=== PATIENT | male | born 1955 | race Caucasian/White ===

== ENCOUNTER 2021-07-10 06:45 | Emergency (ER) | payer MEDICAID ==
[~2021-07-10] VITALS: Ht 172.7 cm; Wt 72.7 kg
[2021-07-10 07:37] VITALS: BP 120/71
== END 2021-07-10 07:47 | disposition left against medical advice (07) ==
LOC: EMS 06:49
DX: R33.9 Retention of urine, unspecified (principal); R31.9 Hematuria, unspecified; F17.210 Nicotine dependence, cigarettes, uncomplicated; Z88.8 Allergy status to other drugs, medicaments and biological substances
CPT/HCPCS: 51702; 99284; Z7502

== ENCOUNTER 2021-07-10 11:34 | Emergency (ER) | payer MEDICAID ==
[~2021-07-10] VITALS: Ht 167.6 cm; Wt 63.6 kg
[2021-07-10 12:00] VITALS: BP 134/80
== END 2021-07-10 12:50 | disposition left against medical advice (07) ==
LOC: EMS 11:34
DX: T83.018A Breakdown (mechanical) of other urinary catheter, initial encounter (principal); R33.9 Retention of urine, unspecified; F17.210 Nicotine dependence, cigarettes, uncomplicated; Z88.6 Allergy status to analgesic agent; Y84.6 Urinary catheterization as the cause of abnormal reaction of the patient, or of later complication, without mention of misadventure at the time of the procedure
CPT/HCPCS: 51702; 99281; 99283; 99284